=== PATIENT | female | born 1990 | race Two or more races ===

== ENCOUNTER 2016-04-24 13:26 | Emergency (ER) | payer OTHER ==
[2016-04-24 13:39] VITALS: BP 141/85; PULSE 93; RESP 22; TEMP 98.2; O2SAT 96
--- NOTE | 2016-04-24 14:56 | EDPHY ---
H & P Time Seen by Provider: 04/24/16 14:49 HPI/ROS: CHIEF COMPLAINT: Cough HISTORY OF PRESENT ILLNESS: The patient is a 26 year old female with diabetes presenting with 3 weeks of cough and fatigue. ONset of runny nose, sore throat and cough 3 weeks ago. The patient continues to have a dry cough. She has associated shortness of breath that is worse when coughing. She feels hot and cold in the past few days, but has not taken her temperature. Her symptoms have remained constant since onset. REVIEW OF SYSTEMS: A comprehensive 10 point review of systems is otherwise negative aside from elements mentioned in the history of present illness. Past Medical/Surgical History: Diabetes, Hypothyroid Social History: No recent alcohol. Smoking Status: Never smoked Physical Exam: General Appearance: Alert, pleasant, O2 sat 96% on RA Eyes: Pupils equal and round, no conjunctival pallor or injection ENT, Mouth: Mucous membranes moist Neck: Normal inspection Respiratory: Normal respiratory rate, lungs are clear to auscultation Cardiovascular: Regular rate and rhythm Gastrointestinal: Abdomen is soft and non-tender Neurological: A&O, nonfocal, normal gait Skin: Warm and dry, no rash Extremities: Nontender, no pedal edema Psychiatric: Mood and affect normal Constitutional: Initial Vital Signs Temperature (C) 36.8 C 04/24/16 13:36 Heart Rate 93 04/24/16 13:36 Respiratory Rate 22 H 04/24/16 13:36 Blood Pressure 141/85 H 04/24/16 13:36 O2 Sat (%) 96 04/24/16 13:36 O2 Delivery Mode Room Air Allergies/Adverse Reactions: No Known Allergies Allergy (Unverified 04/24/16 13:35) Home Medications: Medication Instructions Recorded Azithromycin [Zithromax] 250 mg PO DAILY #6 tab 04/24/16 Levothyroxine 04/24/16 Metformin HCl 04/24/16 Medical Decision Making - Diagnostics Imaging: Study: X-ray of the chest was obtained. Results: Normal. Images were interpreted by the radiologist, Dr. Beckett. I viewed the images myself on the PACS system. ED Course/Re-evaluation: This patient presents with a prolonged cough, likely with fever and chills. Although chest x-ray is normal, I suspect that she may have early pneumonia, especially in the setting of diabetes. Zithromax prescription written. I have encouraged the patient to follow up with her primary care physician if she is not starting to improve in 2 days. Differential Diagnosis: Differential diagnosis includes but is not limited to pneumonia, otitis media, peritonsillar abscess, retropharyngeal abscess, meningitis. Departure - Departure Disposition: Home, Routine, Self-Care Clinical Impression: Bronchitis Condition: Good Instructions: Acute Bronchitis (ED) Additional Instructions: Followup with Dr. Pedro in 48 hours if you are not feeling better or if your symptoms are getting worse. I suspect you have early pneumonia. Take full course of antibiotics as prescribed. Referrals: DR RAEANN [Other] - As per Instructions Prescriptions: Azithromycin [Zithromax] 250 mg PO DAILY #6 tab Report Scribed for: Rima Goode Report Scribed by: Seble Hackett Date of Report: 04/24/16 Time of Report: 14:58 Physician Review and Approval Statement: 04/24/16 14:58 Portions of this note were transcribed by a medical records supervisor. I personally performed the history, physical exam, and medical decision-making; and confirmed the accuracy of the information in the transcribed note.
== END 2016-04-24 15:06 | disposition home or self-care (01) ==
LOC: MERGE 13:26
DX: J20.9 Acute bronchitis, unspecified (principal); E11.9 Type 2 diabetes mellitus without complications